=== PATIENT | male | born 1950 | race Caucasian/White ===

== ENCOUNTER 2016-07-11 22:43 | Emergency (ER) | payer MEDICARE, OTHER | END 2016-07-12 00:10 | disposition home or self-care (01) | LOC: ED 22:43 | DX: S01.81XA Laceration without foreign body of other part of head, initial encounter (principal); W19.XXXA Unspecified fall, initial encounter ==

== ENCOUNTER 2016-08-13 09:43 | Emergency (ER) | payer MEDICARE ==
[2016-08-13] MEDS ORDERED: IOPAMIDOL 300 (61%) 150 ML VIAL IV ONE (09:44)
[2016-08-13 10:34] LABS: ABSOLUTE NEUTROPHIL COUNT 13.9 K/mm3 (1.8-7.7); BASO # 0.1 K/mm3 (0.0-0.2); BASO % 0.4 % (0.2-1.0); EOS % 0.1 % (0.9-2.9); HEMATOCRIT 50.5 % (32.0-52.0); HEMOGLOBIN 17.4 gm/l (14.0-18.0); IMM NEUT # 0.1 K/mm3 (0-0.2); IMM NEUT% 0.4 % (0-1); LYMPH # 0.9 (1.0-4.8); LYMPH % 5.9 % (15-45); MEAN CELL VOLUME 93.3 fl (80.0-94.0); MEAN CORPUSCULAR HEMOGLOBIN 32.2 pg (27.0-31.0); MEAN CORPUSCULAR HGB CONC 34.5 g/dl (33.0-37.0); MEAN PLATELET VOLUME 10.6 fl (7.4-10.4); MONO % 6.4 % (4-12); NEUT % 86.8 % (43-75); PLATELET COUNT 221 K/mm3 (130-400); RED CELL DISTRIBUTION WIDTH 12.9 % (11.5-14.5)
[2016-08-13 10:49] LABS: ALB/GLOB RATIO 1.3 (>1.0); CALCIUM 9.4 mg/dL (8.6-10.3)
[2016-08-13] MEDS ORDERED: ONDANSETRON 4 MG/2ML 2 ML VIAL ONE (10:54)
[2016-08-13] MEDS ORDERED: PANTOPRAZOLE SODIUM 40 MG VIAL IV ONE (10:54)
[2016-08-13] MEDS ORDERED: SODIUM CHLORIDE 0.9% 1,000 ML ONE (10:54)
[2016-08-13] MEDS ORDERED: KETOROLAC TROMETHAMINE 30 MG/ML 1 ML VIAL ONE (10:54)
[2016-08-13 11:15] LABS: URINE APPEARANCE CLEAR; URINE BILIRUBIN NEGATIVE (NEGATIVE); URINE BLOOD 1+ (NEGATIVE); URINE COLOR DARK YELLOW; URINE GLUCOSE (UA) NEGATIVE (NEGATIVE); URINE LEUKOCYTE ESTERASE NEGATIVE (NEGATIVE); URINE NITRITE NEGATIVE (NEGATIVE); URINE PROTEIN TRACE (NEGATIVE); URINE UROBILINOGEN NORMAL (0-1 mg/dl)
[2016-08-13 11:27] LABS: URINE EPITHELIAL CELLS 0-2 /hpf; URINE RBC 0-2 /hpf; URINE WBC 0-2 /hpf
[2016-08-13 11:28] LABS: URINE BACTERIA NONE SEEN
--- NOTE | 2016-08-13 12:00 | CT ---
ABD/PELVIS W/ CON COMPARISON: None. HISTORY: Abdominal pain for 3 days, with fever. Technique: No oral contrast. Intravenous injection 125 mL Isovue 300. Using a [employer] Aqu[employer] [address] scanner, images were obtained from the diaphragm to the floor the pelvis. An automated dose reduction technique was used to minimize patient radiation dose. Dose information: CTDIvol (mGy): 17.40 DLP(mGycm): 947.50 FINDINGS: Lung bases: Normal. Inferior mediastinum and heart: Normal. Liver: Low-attenuation. Gallbladder:Normal. Bile ducts: Normal. Pancreas: Atrophy. Spleen: Normal. Adrenal glands: Normal. Kidneys: Severe hydronephrosis right kidney. Fluid in the perinephric space. Multiple cysts in the pelvis of the left kidney. Ureters: 4.7 mm obstructing stone at the right ureterovesical junction. Normal left ureter. Urinary bladder: Normal. Prostate gland and seminal vesicles: Normal. Blood vessels: Normal Lymph nodes: Normal Stomach: Normal Duodenum: Normal Small intestine: Normal Appendix: Normal Colon: Diverticulosis of the descending colon and sigmoid colon. Abdominal wall and supporting musculature: Fat-containing umbilical hernia. Bones: No acute finding. 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 IMPRESSION: 1. Obstructing 4.7 moderate stone at the right ureterovesical junction with severe right hydronephrosis and fluid around the right kidney in the proximal right ureter, and evidence of a urine leak from either the kidney or the proximal ureter. 2. Incidental findings include fatty infiltration of liver, atrophy of the pancreas, multiple left renal pelvic cyst, diverticulosis of the descending and sigmoid colon, fat-containing umbilical hernia, and severe degenerative changes lumbar spine. The results were discussed with Julio Dalal M.D., 08/13/2016 at 11:57
== END 2016-08-13 12:33 | disposition home or self-care (01) ==
LOC: ED 09:43
DX: N13.2 Hydronephrosis with renal and ureteral calculous obstruction (principal); R10.9 Unspecified abdominal pain
CPT/HCPCS: 83690; 85025; 87086; 80053; 84484; 81001; 74177; 96375 ×2; 99284 ×2; 96374; 96361; C9113; J1885; J2405; J7030; Q9967